=== PATIENT | female | born 1975 | race Asian ===

== ENCOUNTER 2020-12-19 13:32 | Emergency (ER) | payer OTHER, SELFPAY ==
[2020-12-19] VITALS (13 sets, daily range): BP systolic 112–144; BP diastolic 61–93; PULSE 86–101; RESP 15–24; TEMP 36.6; O2SAT 96–100; BMI 34.4
--- NOTE | 2020-12-19 13:44 | DI.RAD.S_ITS ---
PROCEDURE: XR CHEST 2V INDICATIONS: Shortness of breath TECHNIQUE: 2 views of the chest were acquired. COMPARISON: None. FINDINGS: Surgical changes and devices: None. Lungs and pleura: Moderate to large left pleural effusion is seen with left lower lobe atelectasis. Right lung is clear. No pneumothorax. Mediastinum: Mediastinal contours are normal. Heart size is normal. Bones and chest wall: No suspicious bony abnormalities. Soft tissues appear unremarkable. IMPRESSION: Moderate to large left pleural effusion with left lower lobe atelectasis. Right lung is clear. No pneumothorax. Dictated by: Kailash Agosto M.D. on 12/19/2020 at 14:15 Approved by: Kailash Agosto M.D. on 12/19/2020 at 14:15
[2020-12-19 15:39] LABS: Adenovirus Not Detected (Not Detect); Coronavirus 229E Not Detected (Not Detect); Coronavirus HKU1 Not Detected (Not Detect); Coronavirus NL 63 Not Detected (Not Detect); Coronavirus OC43 Not Detected (Not Detect); Human Metapneumovirus Not Detected (Not Detect); Human Rhinovirus/Enterovirus Detected (Not Detect); Influenza A Not Detected (Not Detect); Influenza B Not Detected (Not Detect); Parainfluenza Virus 1 Not Detected (Not Detect); Parainfluenza Virus 2 Not Detected (Not Detect); SARS- CoV-2 Not Detected (Not Detecte)
[2020-12-19 15:40] LABS: B. parapertussis Not Detected (Not Detecte); Bordetella pertussis Not Detected (Not Detecte); Chlamydophila pneumoniae Not Detected (Not Detect); Mycoplasma pneumoniae Not Detected (Not Detect); Parainfluenza Virus 3 Not Detected (Not Detect); Parainfluenza Virus 4 Not Detected (Not Detect); Respiratory Syncytial Virus Not Detected (Not Detect)
[2020-12-19 18:16] LABS: Add Manual Diff / Slide Review NO; Basophils Absolute Auto 100 /uL (0-100); Basophils Percent Auto 0.8 % (0-2); Eosinophils Absolute Auto 300 /uL (0-450); Eosinophils Percent Auto 3.1 % (2-4); Hematocrit 33.4 % (36-46); Hemoglobin 10.5 g/dL (12.0-16.0); Lymphocytes Absolute Auto 1300 /uL (1100-4500); Mean Corpuscular HGB Conc 31.3 % (30-36); Mean Corpuscular Hemoglobin 22.3 PG (26-34); Mean Corpuscular Volume 71.2 fL (80-100); Monocytes Absolute Auto 600 /uL (0-900); Monocytes Percent Auto 6.1 % (3-14); Neutrophils Absolute Auto 7700 /uL (1500-7000); Platelet Count 403 X10^3/uL (150-400); Red Blood Cell Count 4.69 X10^6/uL (4.0-5.2); Red Cell Distribution Width 16.9 % (11.6-14.8)
[2020-12-19 18:34] LABS: Alanine Aminotransferase 15 IU/L (<35); Albumin 4.3 g/dL (3.5-5.0); Albumin Globulin Ratio 1.2 (1.0-2.8); Alkaline Phosphatase 72 U/L (38-126); Aspartate Aminotransferase 23 IU/L (14-36); BUN Creatinine Ratio 9.8 (6-22); Bilirubin Total 0.6 mg/dL (0.2-1.3); Blood Urea Nitrogen 5 mg/dL (7-17); Carbon Dioxide 26 mmol/L (22-32); Chloride 105 mmol/L (98-107); Creatine Kinase 42 U/L (30-135); Estimated Glomerular Filt Rate > 60.0 mL/min (>60); Globulin 3.7 g/dL (1.7-4.1); Glucose 87 mg/dL (70-100); HEMOLYSIS < 15 (0-50); Potassium 3.5 mmol/L (3.4-5.1); Sodium 139 mmol/L (137-145)
[2020-12-19 18:44] LABS: D Dimer 1518 ng/mL (<230)
[2020-12-19 18:46] LABS: Troponin I < 0.012 ng/mL (0.01-0.034)
--- NOTE | 2020-12-19 18:52 | ED_ITS ---
HPI - Recheck/Abnormal Lab/Rx General Chief Complaint: Recheck/Abnormal Lab/Rx Stated Complaint: Sent From [facility] Time Seen by Provider: 12/19/20 18:49 Source: patient Mode of arrival: Ambulatory Limitations: no limitations History of Present Illness HPI narrative: This is a 44-year-old female who was sent from walk-in clinic for chest x-ray which shows possible pleural effusion. Patient states she has had shortness of breath around October 31 which has been worsening since it started. She said just before that she had quit smoking tobacco and vaping tobacco. She and her family drove here and arrived on November 05. While traveling she developed cold and cough symptoms with nasal congestion, some chest pain and shortness of breath. She states those symptoms resolved but the shortness of breath did not. For 5 days ago she developed a runny nose again some sores in her mouth, continued cough and shorts in breath which seems to be worse. She has had a little bit of chest congestion and productive cough with some yellow sputum. She has been afebrile. She notes that if she lays on her left side that seems to make her shortness of breath little bit worse she feels better when she is upright. She has had intermittent nausea vomiting but nothing persistent. Patient did have a couple days of vertigo after taking edible gummies but that resolved after several days. Today she has had some mild diarrhea. She has had some stress incontinence when she coughs but denies any black or bloody stools. No abdominal pain. No other GI or urinary symptoms. She has not appreciate any swelling her extremities. She denies any medical issues besides seasonal allergies. She has had x3. No known drug allergies. She quit smoking October 31, occasional alcohol, very rare THC. No known past medical history of cardiac, pulmonary embolic or cancer that she is aware. She has a mild headache and is requesting some Tylenol. Related Data Allergies Allergy/AdvReac Type Severity Reaction Status Date / Time No Known Drug Allergies Allergy Verified 12/19/20 13:39 Review of Systems Review of Systems ROS Unobtainable: All systems reviewed & are unremarkable except as noted in HPI and below Patient History Social History Smoking Status: Current some day smoker Smoking Status: Current some day smoker tobacco type: vaping alcohol intake frequency: holidays/special occasions only Substance Use Type: marijuana Exam Narrative Exam Narrative: GENERAL: Alert and oriented x three, mild distress. HEENT: Head normocephalic, atraumatic, EOMI, pupils reactive, face symmetric, moist mucous membranes NECK: Supple, full range of motion CARDIOVASCULAR: Regular rate and rhythm without murmurs, rubs or gallops. RESPIRATORY: Breath sounds equal present bilaterally but patient has decreased sounds on the left base, no wheezes rales or rhonchi. No tachypnea. Very mild dry cough intermittently. ABDOMEN: Soft, nontender. Normoactive bowel sounds all 4 quadrants. No guarding or rebound, rigidity, no mass : No CVA tenderness EXTREMITIES: Normal range of motion, no clubbing or edema. 2+ pulses bilateral lower extremities. Neurovascularly intact NEUROLOGICAL: Cranial nerves II through XII grossly intact. Moving all extremities SKIN: Warm, dry, no petechiae, no rashes or lesions. Initial Vital Signs Initial Vital Signs: Vital Signs Temperature 97.9 F 12/19/20 13:39 Pulse Rate 100 H 12/19/20 13:39 Respiratory Rate 18 12/19/20 13:39 Blood Pressure 140/90 12/19/20 13:39 Pulse Oximetry 100 12/19/20 13:39 Course Orders Ordered: Discontinued Medications Acetaminophen (Acetaminophen 325 Mg Tablet) 975 mg PO NOW ONE Stop: 12/19/20 19:04 Last Admin: 12/19/20 19:38 Dose: 975 mg Documented by: SOTO Consultations Consultation #1: Oncology, Dr. Perez-local oncology. Recommends alpha feto protein, lactate dehydrogenase, hcg level and lymphoma panel which is a send out. He recommends referral to [facility] for likely t cell lymphoma or germ cell tumor. Time: 20:10 Consultation #2: Solid tumor attending at [facility]. Dr. Cablalero, plan for [address] call with thoracic surgery to weigh in on outpatient follow-up but she feels from an oncology perspective could likely follow-up with the patient urgently but patient does need a tissue sample. Consultation #3: Dr. Cirilo Phillips, thoracic surgery for Tuesday. Dr. Caballero will help facilitate to follow up on Tuesday. [email or web address] for patients seeking appointments. patient to reach out to email this weekend. Patient phone number given to Dr. Caballero from oncology who will phone Tuesday for appointment in the afternoon. We discussed patient does seem stable at this time for urgent outpatient follow up. Time: 22:51 Vital Signs Vital signs: Vital Signs - 8 hr 12/19/20 23:10 Pulse Rate 96 H Respiratory Rate 20 Blood Pressure 132/93 H Pulse Oximetry 100 MDM - Recheck/Abnormal Lab/Rx Lab Data Result diagrams: 12/19/20 18:00 12/19/20 18:00 Labs: Lab Results 12/19/20 12/19/20 12/19/20 Range/Units 13:45 18:00 18:00 WBC 10.0 (4.5-11.0) X10^3/uL RBC 4.69 (4.0-5.2) X10^6/uL Hgb 10.5 L (12.0-16.0) g/dL Hct 33.4 L (36-46) % MCV 71.2 L (80-100) fL MCH 22.3 L (26-34) PG MCHC 31.3 (30-36) % RDW 16.9 H (11.6-14.8) % Plt Count 403 H (150-400) X10^3/uL Neut % (Auto) 77.0 H (50-75) % Lymph % (Auto) 13.0 L (25-40) % [place]oup % (Auto) 6.1 (3-14) % Eos % (Auto) 3.1 (2-4) % Baso % (Auto) 0.8 (0-2) % Neut # (Auto) 7700 H (3355-6123) /uL Lymph # (Auto) 1300 (3538-7750) /uL Troup # (Auto) 600 (0-900) /uL Eos # (Auto) 300 (0-450) /uL Baso # (Auto) 100 (0-100) /uL D-Dimer 1518 H (<230) ng/mL Sodium (137-145) mmol/L Potassium (3.4-5.1) mmol/L Chloride (98-107) mmol/L Carbon Dioxide (22-32) mmol/L BUN (7-17) mg/dL Creatinine (0.52-1.04) mg/dL Estimated GFR (>60) mL/min BUN/Creatinine Ratio (6-22) Glucose (70-100) mg/dL Calcium (8.4-10.2) mg/dL Total Bilirubin (0.2-1.3) mg/dL AST (14-36) IU/L ALT (<35) IU/L Alkaline Phosphatase (38-126) U/L Lactate Dehydrogenase (313-618) U/L Total Creatine Kinase (30-135) U/L CK-MB (CK-2) CK-MB (CK-2) Rel Index Troponin I (0.01-0.034) ng/mL Total Protein (6.3-8.2) g/dL Albumin (3.5-5.0) g/dL Globulin (1.7-4.1) g/dL Albumin/Globulin Ratio (1.0-2.8) HCG, Quant mIU/mL Chlamy pneumoniae PCR Not detected (Not Detect) Adenovirus (PCR) Not detected (Not Detect) B. pertussis DNA (PCR) Not detected (Not Detecte) B.parapertussis DNA PCR Not detected (Not Detecte) Coronavirus OC43 (PCR) Not detected (Not Detect) Coronavirus HKU1 (PCR) Not detected (Not Detect) Coronavirus 229E (PCR) Not detected (Not Detect) SARS-CoV-2 (PCR) Not detected (Not Detecte) Coronavirus NL63 (PCR) Not detected (Not Detect) Human Metapneumovir PCR Not detected (Not Detect) Influenza Type A (PCR) Not detected (Not Detect) Influenza Type B (PCR) Not detected (Not Detect) M. pneumoniae (PCR) Not detected (Not Detect) Parainfluenza 1 (PCR) Not detected (Not Detect) Parainfluenza 2 (PCR) Not detected (Not Detect) Parainfluenza 3 (PCR) Not detected (Not Detect) Parainfluenza 4 (PCR) Not detected (Not Detect) RSV (PCR) Not detected (Not Detect) Entero/Rhino (PCR) Detected H (Not Detect) 12/19/20 12/19/20 Range/Units 18:00 18:00 WBC (4.5-11.0) X10^3/uL RBC (4.0-5.2) X10^6/uL Hgb (12.0-16.0) g/dL Hct (36-46) % MCV (80-100) fL MCH (26-34) PG MCHC (30-36) % RDW (11.6-14.8) % Plt Count (150-400) X10^3/uL Neut % (Auto) (50-75) % Lymph % (Auto) (25-40) % Troup % (Auto) (3-14) % Eos % (Auto) (2-4) % Baso % (Auto) (0-2) % Neut # (Auto) (7531-3000) /uL Lymph # (Auto) (5127-9792) /uL Troup # (Auto) (0-900) /uL Eos # (Auto) (0-450) /uL Baso # (Auto) (0-100) /uL D-Dimer (<230) ng/mL Sodium 139 (137-145) mmol/L Potassium 3.5 (3.4-5.1) mmol/L Chloride 105 (98-107) mmol/L Carbon Dioxide 26 (22-32) mmol/L BUN 5 L (7-17) mg/dL Creatinine 0.51 L (0.52-1.04) mg/dL Estimated GFR > 60.0 (>60) mL/min BUN/Creatinine Ratio 9.8 (6-22) Glucose 87 (70-100) mg/dL Calcium 9.0 (8.4-10.2) mg/dL Total Bilirubin 0.6 (0.2-1.3) mg/dL AST 23 (14-36) IU/L ALT 15 (<35) IU/L Alkaline Phosphatase 72 (38-126) U/L Lactate Dehydrogenase 571 (313-618) U/L Total Creatine Kinase 42 (30-135) U/L CK-MB (CK-2) TNP CK-MB (CK-2) Rel Index TNP Troponin I < 0.012 (0.01-0.034) ng/mL Total Protein 8.0 (6.3-8.2) g/dL Albumin 4.3 (3.5-5.0) g/dL Globulin 3.7 (1.7-4.1) g/dL Albumin/Globulin Ratio 1.2 (1.0-2.8) HCG, Quant < 2.4 mIU/mL Chlamy pneumoniae PCR (Not Detect) Adenovirus (PCR) (Not Detect) B. pertussis DNA (PCR) (Not Detecte) B.parapertussis DNA PCR (Not Detecte) Coronavirus OC43 (PCR) (Not Detect) Coronavirus HKU1 (PCR) (Not Detect) Coronavirus 229E (PCR) (Not Detect) SARS-CoV-2 (PCR) (Not Detecte) Coronavirus NL63 (PCR) (Not Detect) Human Metapneumovir PCR (Not Detect) Influenza Type A (PCR) (Not Detect) Influenza Type B (PCR) (Not Detect) M. pneumoniae (PCR) (Not Detect) Parainfluenza 1 (PCR) (Not Detect) Parainfluenza 2 (PCR) (Not Detect) Parainfluenza 3 (PCR) (Not Detect) Parainfluenza 4 (PCR) (Not Detect) RSV (PCR) (Not Detect) Entero/Rhino (PCR) (Not Detect) Urine Dip Bedside Urine Glucose Negative Bedside Urine Bilirubin - Negative Bedside Urine Ketone - Negative Urine Specific [place] 1.005 Bedside Urine Occult Blood +/- Bedside Urine pH 7.5 Bedside Urine Protein - Negative Bedside Urine Urobilinogen - Negative Bedside Urine Nitrite - Negative Bedside Urine Leukocytes - Negative Esterase Imaging Data Chest x-ray: Radiologist's Impression: Launch?[place] [address] XRay Report Signed Patient: Omega Billy MR#: [id number] : 1975 Acct:[id number] Age/Sex: 44 / F Date of Service: 12/19/20 Loc: ED Accession Number: [id number] ?? Procedure: XR chest 2V Ordering Provider: Yazmin Fernandez MD PROCEDURE:? XR CHEST 2V ? INDICATIONS:? Shortness of breath ? TECHNIQUE:? 2 views of the chest were acquired.? ? COMPARISON:? None. ? FINDINGS:? ? Surgical changes and devices:? None.? ? Lungs and pleura:? Moderate to large left pleural effusion is seen with left lower lobe atelectasis.? Right lung is clear.? No pneumothorax. ? Mediastinum:? Mediastinal contours are normal.? Heart size is normal.? ? Bones and chest wall:? No suspicious bony abnormalities.? Soft tissues appear unremarkable.? ? IMPRESSION:? Moderate to large left pleural effusion with left lower lobe atelectasis.? Right lung is clear.? No pneumothorax. ? ? Dictated by: Kailash Agosto M.D. on 12/19/2020 at 14:15 ? ? Approved by: Kailash Agosto M.D. on 12/19/2020 at 14:15? ECG Data Attestation: I personally reviewed and interpreted this ECG as follows: MDM Narrative Medical decision making narrative: 44-year-old female comes emergency department with least 2 months shortness of breath. Patient recently moved cross country from [place]. She notes she has recently had a cough that developed and some nasal congestion. She is positive for rhino virus but chest x-ray shows a pleural effusion. Patient's dimer is elevated, she has some risk factors with her travel smoking. She does not have any other medical issues her other labs do not show major abnormalities. CT angio shows no PE but a large almost 12 cm mass with pleural effusion and multiple areas of lymphadenopathy. Discussed with local Oncology who recommends some additional labs for evaluation and lymphoma flow cytometry. He does recommend patient be seen at [facility] for possible T-cell lymphoma verses trim cell. I spoke with Oncology [facility] who feels patient could be seen urgently in consultation with with thoracic surgery was performed and patient is going to see seen in 3 days on Tuesday afternoon with thoracic surgery for biopsy and to initiate her evaluation and treatment. Patient is stable here with appropriate vitals. I do feel that this is appropriate for urgent follow-up in this manner. All questions were answered. She was also given an e-mail that she can contact for questions at [facility] she was encouraged to call us if she is having any difficulties or if she has not been contacted by noon on Tuesday for her follow-up. I did confirm with the patient that her cell phone number and the demographics is appropriate for contacted she is aware that she should be getting call from the [facility]. Patient's was also here in the department when he came to pick her up and we reviewed her findings today. A disc with her CT was also included with the patient's discharge instructions. Discharge Plan Departure Patient Disposition: Home Clinical Impression: Pleural effusion, Rhinovirus infection, Lung mass Activity Restrictions/Additional Instructions: You should be contacted Tuesday morning for an appointment with Dr. Cirilo Phillips with [facility] thoracic surgery for evaluation and to be set up for biopsy of the mass. I spoke with the oncologist today Dr. Caballero, she will help call to set up her follow-up Tuesday morning. You can also contact the included email it is the patient direct care worker. This you can e-mail this week to facilitate your own follow-up and to contact. [email or web address] If you have any difficulty with follow-up or have not been contacted by Tuesday. Please call the emergency department and we can help facilitate your follow-up. Please return for new or worsening shortness of breath, lightheadedness or passing out, chest pain, persistent vomiting, new swelling of her extremities or other new or concerning symptoms.
--- NOTE | 2020-12-19 19:03 | DI.CT.S_ITS ---
PROCEDURE: CT ANGIO CHEST PE PROTOCOL INDICATIONS: pleural effusion, sob, cough/cold since october. TECHNIQUE: After the administration of intravenous contrast, 2 mm thick sections acquired from the pulmonary apices to the posterior costophrenic angles. 3-dimensional maximum intensity projection (MIP) coronal and sagittal reformats were then acquired through the thorax. For radiation dose reduction, the following was used: automated exposure control, adjustment of mA and/or kV according to patient size. COMPARISON: [facility], CR, XR CHEST 2V, 12/19/2020, 13:53. FINDINGS: Image quality: Excellent. Pulmonary arteries: Pulmonary arteries are normal in size, and demonstrate no intraluminal filling defects to suggest central pulmonary embolism. Lungs and pleura: There is a moderate left pleural effusion. Left basilar atelectasis present. No pleural effusions or pneumothorax. Central and peripheral airways are patent. Mediastinum: There is a large mediastinal mass demonstrating both soft tissue and fat concordant with foci of calcification, suspicious for a large malignant germ-cell tumor. The mass measures approximately 8.8 cm AP, 10.5 cm transverse, and 11.7 cm cephalocaudal. It is closely associated with the left cardiac border and extending into the left chest cavity. There is mediastinal and left hilar lymphadenopathy suspicious for metastasis. There is a 1.7 x 2.5 cm prevascular lymph node. A 1.4 x 4.0 cm soft tissue mass anterior to the ascending aorta and pulmonary outflow tract may be enlarged verito tissue or part of the mediastinal mass. A 1.4 cm left hilar lymph node is identified. Heart size is normal, without pericardial effusion. Thoracic aorta is normal in caliber and enhancement. Esophagus is normal in caliber, without hiatal hernia. Bones and chest wall: No suspicious bony lesions. Ribs and thoracic spine appear intact throughout. Thyroid gland is normal. Slightly prominent but normal sized axillary or supraclavicular are noted bilaterally. Abdomen: Visualized upper abdominal solid organs appear normal in the early arterial phase of enhancement. IMPRESSION: 1. A large heterogeneous mass in the mediastinum measuring 8.8 x 10.5 x 11.7 cm extending into the left chest cavity. 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 Differential diagnoses include a thymic tumor such as thymic carcinoma, and less likely lymphoma and metastasis. 2. Mediastinal and left hilar lymphadenopathy suspicious for verito metastasis. 3. Moderate left pleural effusion suspicious for metastasis. The result was discussed with Dr. Bowers. Dictated by: Marek Alonzo M.D. on 12/19/2020 at 19:52 Approved by: Marek Alonzo M.D. on 12/19/2020 at 20:04
[2020-12-19] MEDS: ACETAMINOPHEN 325 MG TABLET 975 MG PO (19:38)
[2020-12-19 20:48] LABS: Lactate Dehydrogenase 571 U/L (313-618)
[2020-12-19 21:06] LABS: HCG Quantitative /Beta subunit < 2.4 mIU/mL
[2020-12-21 09:22] LABS: Alpha Fetoprotein 2.9 ng/mL (0.0-8.3)
== END 2020-12-19 23:20 | disposition home or self-care (01) ==
PROVIDERS: Emergency Medicine; Emergency Provider Emergency Medicine
DX: J90 Pleural effusion, not elsewhere classified (principal); B34.8 Other viral infections of unspecified site; R91.8 Other nonspecific abnormal finding of lung field; R07.9 Chest pain, unspecified; Z20.822 Contact with and (suspected) exposure to COVID-19
CPT/HCPCS: 36415; 71046; 71275; 80053; 81003; 82105; 82550; 83615; 84484; 84702; 85025; 85379; 87633; 99284